=== PATIENT | male | born 1965 | race Caucasian/White ===

== ENCOUNTER 2023-08-06 07:38 | Emergency (ER) | payer OTHER, SELFPAY ==
[2023-08-06 08:33] LABS: #Lymphocytes 0.4 thou/uL (1.20-3.40); #Monocytes 0.2 thou/uL (0.11-0.59); #Neutrophils 6.9 thou/uL (1.40-6.50); %Basophils 0.5 % (0.0-1.0); %Eosinophils 0.1 % (0.0-10.0); %Lymphocytes 4.9 % (21.0-51.0); %Neutrophils 91.5 % (42.0-75.0); Hematocrit 41.1 % (42.0-52.0); Hemoglobin 13.8 g/dL (14.0-18.0); Mean Corpuscular HGB CONC 33.6 g/dL (32.0-36.0); Mean Corpuscular Volume 83.3 fl (78.0-98.0); Mean Platelet Volume 8.2 fL (7.4-10.4); Platelet Count 103 10x3/uL (130-400); RBC Distribution Width 12.3 % (11.5-14.5); Red Blood Cell (RBC) Count 4.94 mill/uL (4.70-6.10); White Blood Cell (WBC) Count 7.6 10x3/uL (4.8-10.8)
[2023-08-06] MEDS ORDERED: Morphine 4 MG/ML VIAL ONE (08:44)
[2023-08-06] MEDS ORDERED: Ondansetron PF 4 MG/2 ML Vial ONE (08:44)
[2023-08-06 08:50] LABS: ALT (SGPT) 58 U/L (8-55); AST (SGOT) 78 U/L (5-34); Albumin 3.8 g/dL (3.5-5.0); Alkaline Phosphatase 97 U/L (40-110); Anion Gap 18 mmol/L (10-20); BUN (Urea Nitrogen) 17 mg/dL (8.4-25.7); Bilirubin, Total 1.8 mg/dL (0.2-1.2); Calc. Creatinine Clearance 0 mL/min (70-130); Calcium 9.1 mg/dL (7.8-10.44); Carbon Dioxide 18 mmol/L (22-29); Chloride 100 mmol/L (98-107); Estimated GFR 59; Globulin 3.4 g/dL (2.4-3.5); Glucose 109 mg/dL (70-105); Magnesium 1.6 mg/dL (1.6-2.6); Platelet Adequacy Comment Appears Decreased; Potassium 3.4 mmol/L (3.5-5.1); Protein, Total 7.2 g/dL (6.0-8.3); Sodium 133 mmol/L (136-145)
[2023-08-06] MEDS ORDERED: Sodium Chloride 0.9% 100 ML ONE (09:11)
[2023-08-06] MEDS ORDERED: cefTRIAXone (ROCEPHIN) 1 GM VIAL ONE (09:11)
[2023-08-06] MEDS ORDERED: Aspirin Chewable 81 MG TAB ONE (09:11)
[2023-08-06] MEDS ORDERED: Enoxaparin 100 MG (1 mL) SYRINGE ONE (09:11)
[2023-08-06] MEDS ORDERED: Potassium Bicarbonate/Cit Ac 20 MEQ TAB ONE (09:19)
[2023-08-06] MEDS ORDERED: Magnesium 2 GM/50 ML BAG (IN WATER) ONE (09:20)
[2023-08-06 09:24] LABS: Influenza A by NAA Not Detected (NotDetected); Influenza B by NAA Not Detected (NotDetected); SARS-CoV-2 NAA Rapid Test Not Detected (NotDetected)
[2023-08-06 10:08] LABS: Bilirubin Negative (Negative); Blood, Urine Moderate (Negative); Clarity Clear (Clear); Glucose, Urine (Dipstick) Negative (Negative); Ketone, Urine Negative (Negative); Leukocyte Negative (Negative); Nitrite Negative (Negative); Protein, Urine (Dipstick) 30 mg/dL (Neg-Trace); Specific Gravity, Urine 1.015 (1.005-1.030)
[2023-08-06] MEDS ORDERED: Vancomycin 1 GM VIAL ONE (10:09)
[2023-08-06 10:19] LABS: Bacteria/HPF Rare-Few HPF (None Seen); CAUTI Indications for Culture Fever or rigors; RBC/HPF 0-3 HPF (0-3); Squamous Epithelial 0-3 HPF (0-3); WBC/HPF 0-3 HPF (0-3)
[2023-08-06 10:21] LABS: Urine Culture Reflex No No
[2023-08-06] MEDS ORDERED: Iopamidol 370 76% 100 ML VIAL ONE (11:38)
== END 2023-08-06 11:07 | disposition short-term general hospital (02) ==
LOC: BURERS 07:38
DX: I21.4 Non-ST elevation (NSTEMI) myocardial infarction (principal); E87.6 Hypokalemia; E83.42 Hypomagnesemia; R53.1 Weakness; I10 Essential (primary) hypertension; F17.210 Nicotine dependence, cigarettes, uncomplicated
CPT/HCPCS: 36415; 71045; 74177; 80053; 81001; 83605; 83735; 84484; 85025; 86140; 87040; 87077; 87081; 87086; 87149; 87186; 87430; 93005; 96365; 96367; 96372; 96375; J0696; J1650; J2270; J2405; J3370; J3475; J3490; Q9967